=== PATIENT | male | born 1965 | race Caucasian/White ===

== ENCOUNTER 2024-01-13 22:44 | Emergency (ER) | payer MEDICARE, OTHER, SELFPAY ==
[2024-01-13 22:46] VITALS: BP 143/76
[2024-01-13 22:48] VITALS: BP 143/76
[2024-01-13 22:52] VITALS: BMI 22.1
[2024-01-13 23:00] VITALS: BP 107/76
[2024-01-14] VITALS: BP 122/79
--- NOTE | 2024-01-14 00:37 | ED.GENMED ---
History of Present Illness
General
Chief Complaint: Fall
Source: patient
Exam Limitations: none
Time Seen by Provider: 01/13/24 23:36
History of Present Illness
History of Present Illness:
This is a 59 year old male that comes in with c/o falls. Told that he was walking and fell, tried to get up and fell again. Denies any fever, chills, chest pain, SOB, abd pain, nausea, vomiting, diarrhea, headache, dizziness, urinary burning.
Past History
Past History
ED Past Medical History: Seizures, Psychiatric (Schizophrenia, major depressive disorder, Anxiety) and Other (Traumatic brain injury, conversion disorder with seizures)
ED Past Surgical History: Appendectomy, Brain and Cholecystectomy
Social History
Tobacco: Non-smoker
Alcohol: Occasional
Personal: Single
Living: jail
Employment: Disabled
Family History
Family History: Unable to obtain
Review of Systems
Review of Systems
All Other Systems: ROS reviewed and negative except as documented in HPI and ROS
Constitutional: Reports no symptoms; Denies fever or chills
EENT: Reports no symptoms
Respiratory: Reports no symptoms; Denies cough or trouble breathing
Cardiac: Reports no symptoms; Denies chest pain
ABD/GI: Reports no symptoms; Denies abdominal pain, nausea, vomiting or diarrhea
: Reports no symptoms; Denies dysuria, frequency or urgency
Musculoskeletal: Reports no symptoms
Skin: Reports other (Abrasion posterior head)
Neurological: Reports no symptoms; Denies dizzy or headache
Psychiatric: Reports no symptoms
Phy Exam
General Physical Exam
General Presentation: no apparent distress
General age: appears older than age
General Skin: warm and dry
General Habitus: normal
General Mental: usual mental status
General Hydration: appears well hydrated
ENT Exam
ENT Exam: TM's normal, pharynx normal and neck supple
Eye Exam
Eye Exam: EOMI
Cardiovascular Exam
Cardiovascular Exam: regular rate/rhythm, no edema, no murmur and normal peripheral pulses
Pulmonary Exam
Pulmonary Exam: lungs clear, no respiratory distress, no rales, chest non tender, no crackles, no rhonchi, no wheezing and no cough
Gastrointestinal Exam
Gastrointestinal Exam: normal bowel sounds, non tender, soft, no organomegaly, no pulsatile mass and non distended
Musculoskeletal Exam
Musculoskeletal Exam: full ROM, no edema and other (appears to have some foot drop)
Skin Exam
Skin Exam: normal color, warm/dry, no petechia and other (Abrasion to the posterior scalp)
Psychiatric Exam
Psychiatric Exam: normal mood/affect
Course
Orders/Labs/Results
Orders:
Orders
01/13/24 23:08
CT Head W/o Iv Contrast Urgent
Comment:
Reason For Exam: fall/headstrike
Vital Signs
Initial and Last Documented VS:
Initial Vital Signs
Temp Pulse Resp BP Pulse Ox
97.6 F 61 18 143/76 98
01/13/24 22:46 01/13/24 22:46 01/13/24 22:46 01/13/24 22:46 01/13/24 22:46
Last Documented Vital Signs
Temp Pulse Resp BP Pulse Ox
97.6 F 59 17 122/79 100
01/13/24 22:46 01/14/24 00:15 01/14/24 00:15 01/14/24 00:00 01/14/24 00:15
MDM/Problems Addressed
Differential Diagnosis Includes:
accidental fall, Skin abrasion, Ambulatory dysfunction
MDM/Problems Addressed:
This is a 59 year old male that comes in by ambulance with c/o fall. Told by nursing he was trying to walk and fell and then he got up again to walk and fell. Patient did hit the posterior head.
will get CT of the head.
Back into see patient. Patient was able to walk with assistance. [facility].
Chronic conditions affecting care:
TBI
Acute Exacerbation and/or Progression of Chronic Illness:
TBI
*Radiology
Radiology exam reviewed: radiology read reviewed (CT head-Comparison with CT head from 05/31/22. No acute intracranial hemorrhage, herniation or hydrocephalus. Again, seen encephalomalacia in the left interior frontal lobe. Similar appearance of
course calcification extending from the dural margin into the region of encephalomalacia. ) and other (CT cont- Stable ventricular size and similar appearane of supratentorial white matter. )
*Pulse Oximetry
Patient hypoxic: no
*EKG
Interpreted by ED Provider?: NA
Rate: EKG- N/A
*Compound Coating Machine Offbearer Interpretation
Rate: bradycardiac
Heart Rate: 59
Rhythm: sinus
*Critical Care Note
Total Time (30-74mins, 75-104mins- exclusive of procedures): Not Applicable
ED Attending Note
-
Portions of this chart may have been created with voice recognition software.� Occasional wrong word or��sound alike� substitutions may have occurred due to the inherent limitations of voice recognition software.
Discharge Plan
Departure
Patient Disposition: Half-Way/SNF
Date of Disposition: 01/14/24
Time of Disposition: 00:50
Patient with high blood pressure during this ER visit?: No
Condition: Good
Covid-19: Not Applicable
Discharge Problem:
Accidental fall
Instructions: Preventing falls in adults, Skin Abrasions (DC)
Prescriptions:
No Action
methocarbamol [Robaxin] 500 MG tablet
500 mg PO Q8
gabapentin 400 MG capsule
800 mg PO TID
amantadine HCl 100 MG capsule
100 mg PO DAILY
zonisamide 100 MG capsule
200 mg PO DAILY
zonisamide 100 MG capsule
300 mg PO HS
lorazepam 0.5 MG tablet
0.5 mg PO BID
trazodone 100 MG tablet
100 mg PO HS
hyoscyamine sulfate 0.125 MG tablet
0.125 mg PO QID
trihexyphenidyl 5 MG tablet
2 mg PO QID
folic acid 1 MG tablet
1 mg PO DAILY
levetiracetam 750 MG tablet
1,500 mg PO TID
metoprolol tartrate 25 MG tablet
25 mg PO BID
quetiapine [Seroquel] 50 MG tablet
50 mg PO DAILY
lacosamide [Vimpat] 100 MG tablet
200 mg PO BID
Referrals:
Jordan Jay, [Family Provider] - Call in 1-3 days for appt
Activity Restrictions/Additional Instructions:
As discussed, the CT of patient head is negative for any acute process. Please only allow patient to walk with assistance. There is an abrasion to the posterior scalp. Please keep this clean with warm soapy water and apply bacitracin. Follow up
with the family doctor. IF YOU HAVE ANY OTHER CONCERNS PLEASE RETURN TO THE EMERGENCY ROOM
Interventions
Interventions:
*General Assessment Last Done: 01/13/24 22:46
*Neglect/Abuse Screening Last Done: 01/13/24 22:46
ED- Fall Risk Assessment Last Done: 01/13/24 23:02
*ED COVID-19 Vaccine History Last Done: 01/13/24 22:46
ED-Musculoskeletal Assessment Last Done: 01/13/24 23:02
ED- Neurological Assessment Last Done: 01/13/24 23:02
ED-Skin Assessment Last Done: 01/13/24 23:02
Discharge Date and Time
Print Language: OCCITAN
[2024-01-14 01:00] VITALS: BP 112/66
[2024-01-14 02:01] VITALS: BP 131/98
== END 2024-01-14 02:39 ==
LOC: EMR 22:44
PROVIDERS: EMERGENCY PHYSICIAN Emergency Medicine; FAMILY PHYSICIAN Internal Medicine
DX: S00.01XA Abrasion of scalp, initial encounter (principal); W19.XXXA Unspecified fall, initial encounter
CPT/HCPCS: 99284; 70450

== ENCOUNTER 2024-01-15 17:34 | Emergency (ER) | payer MEDICARE, OTHER, SELFPAY ==
[2024-01-15] VITALS (7 sets, daily range): BP systolic 102–124; BP diastolic 74–101; BMI 22.1
[2024-01-15 17:57] LABS: % Basophils 1.2 % (0-2); % Eosinophils 5.6 % (0-6); % Immature Granulocytes 0.3 % (0-0.5); % Lymphocytes 33.6 % (20.5-51.1); % Monocytes 7.6 % (1.7-9.3); % Neutrophils 51.7 % (42.2-75.2); Absolute Eosinophils 0.2 10^3/uL (0-0.7); Absolute Lymphocytes 1.2 10^3/uL (1.2-3.4); Absolute Monocytes 0.3 10^3/uL (0.1-0.6); Absolute Neutrophils 1.8 10^3/uL (1.4-6.5); Hematocrit 40.5 % (39.0-52.0); Hemoglobin 14.6 g/dL (13.0-18.0); Mean Corpuscular Hgb 33.7 pg (27.0-31.0); Mean Corpuscular Volume 93.5 fL (80.0-94.0); Nucleated Red Blood Cells % 0 % (-); Platelet Count 155 10^3/uL (130-400); Red Blood Cell Count 4.33 10^6/uL (4.70-6.10); Red Cell Dist. Width 12.2 % (11.5-14.5); White Blood Cell Count 3.4 10^3/uL (4.8-10.8)
[2024-01-15 18:11] LABS: ALT (SGPT) 14 U/L (0-50); AST (SGOT) 14 U/L (17-59); Albumin 4.3 g/dl (3.5-5.0); Alkaline Phosphatase 61 U/L (38-126); Blood Urea Nitrogen 18 mg/dl (9-20); Calcium 9.5 mg/dl (8.4-10.2); Carbon Dioxide 22 mmol/L (22-30); Chloride 104 mmol/L (98-107); Estimated Creatinine Clearance 79 ml/min; Glucose 94 mg/dl (70-99); Potassium 3.7 mmol/L (3.5-5.1); Sodium 142 mmol/L (135-145); Total Bilirubin 0.6 mg/dl (0.2-1.3); Total Protein 6.9 g/dl (6.3-8.2); eGFR > 60.00
[2024-01-15] MEDS: NSS 1000 IV (18:29)
--- NOTE | 2024-01-15 19:09 | ED.GENMED ---
History of Present Illness
General
Chief Complaint: Seizure
Source: patient and assisted (Spoke with SCOREBOARD OPERATOR at nursing facility who witnessed fall)
Exam Limitations: none
Time Seen by Provider: 01/15/24 17:50
Nursing documentation reviewed up to this point in time: agreed with
History of Present Illness
History of Present Illness:
Patient is a 59-year-old male presenting via EMS from [facility] due to possible seizure activity. Patient with history of TBI, confused at baseline and unable to contribute much to history. Did contact facility and spoke with nurse
who states that patient did sustain an unwitnessed fall and while they were assisting him up he seemed to have some muscular jerking suspicious for seizure activity. He then did hit his head and slide down the wall where he sustained an additional
head strike. They deny witnessing a postictal state. There was no witnessed bowel/bladder incontinence, nausea or vomiting. They do state that he is compliant with his medications.
Per EMS�when they arrived patient was not in a postictal state.
Patient has no current complaints at this time.
Past History
Past History
ED Past Medical History: Seizures, Psychiatric (Schizophrenia, major depressive disorder, Anxiety) and Other (Traumatic brain injury, conversion disorder with seizures)
ED Past Surgical History: Appendectomy, Brain and Cholecystectomy
Social History
Tobacco: Non-smoker
Alcohol: Occasional
Personal: Single
Living: assisted
Employment: Disabled
Family History
Family History: Unable to obtain
Review of Systems
Review of Systems
Allergies reviewed?: Yes
All Other Systems: ROS reviewed and negative except as documented in HPI and ROS
Phy Exam
Physical Exam
Physical Exam:
Vitals: Patient's vital signs are stable. Afebrile
General: Patient is in no apparent distress
Skin: Warm and dry, no rashes or lesions
Head: Normocephalic, atraumatic. No signs of entrapment. No other obvious trauma
Eyes: Sclera nonicteric. Pupils equal round reactive to light bilaterally. EOMs intact. No nystagmus.
Throat: Protecting airway. Trachea midline
Neck: Normal ROM, no cervical spine tenderness, no meningismus. No other obvious trauma
Cardiac: Regular rate and rhythm, no murmurs. No chest wall tenderness. No obvious trauma.
Pulm: Normal respiratory effort, no wheezes, rales, rhonchi heard on exam. No respiratory distress
Abdomen: Abdomen soft and nontender. Pelvis stable.
Back: No midline spinal tenderness.
Extremities: No evidence of cyanosis or edema. Moving all extremities. No obvious trauma.
Neuro: AAOx [address] or time. Following commands. Normal finger-nose. Strength 5 out of 5 in upper and lower extremities. No other focal deficits.
Psychiatric: Normal affect.
Course
Orders/Labs/Results
Orders:
Orders
01/15/24 17:49
CMP [Comprehensive Metabolic Panel] Urgent
Complete Blood Count/With Diff Urgent
01/15/24 18:14
Electrocardiogram (*1) Urgent
Reason for Study: Syncope
CT Head W/o Iv Contrast Urgent
Comment:
Reason For Exam: fall/possible seizure, head strike
EKG- Treatment ONCE
0.9% Sodium Chloride 1000 ml [Nss] 1,000 ml IV BOLUS
Abnormal Lab Results
01/15/24
17:49
WBC 3.4 L 10^3/uL
(4.8-10.8)
RBC 4.33 L 10^6/uL
(4.70-6.10)
MCH 33.7 H pg
(27.0-31.0)
AST 14 L U/L
(17-59)
01/15/24 17:49
01/15/24 17:49
Vital Signs
Initial and Last Documented VS:
Initial Vital Signs
Temp Pulse Resp BP Pulse Ox
98.3 F 68 18 104/74 93
01/15/24 17:37 01/15/24 17:37 01/15/24 17:37 01/15/24 17:37 01/15/24 17:37
Last Documented Vital Signs
Temp Pulse Resp BP Pulse Ox
98.3 F 63 12 114/101 99
01/15/24 17:37 01/15/24 20:45 01/15/24 20:45 01/15/24 20:00 01/15/24 20:45
MDM/Problems Addressed
Differential Diagnosis Includes:
Not limited to: Mechanical fall, syncope, seizure, etc.
MDM/Problems Addressed:
59 year old male presenting with witnessed fall and associated head strike. There was some concern of myoclonic jerking and possible seizure. He does have a history of seizure disorder following TBI. No history of bowel/bladder incontinence.
Patient is compliant with Keppra. Vital stable. Exam as above. Patient is alert and oriented to person which is his baseline. There is no evidence of head or neck trauma. Patient is following commands. No focal neurologic deficits noted. He
does have bilateral equal strength in extremities. Patient denies any current complaints at this time. After speaking with nursing facility�unsure if this was possible seizure activity. Will obtain basic labs, EKG. Given history of head
strike�will check head CT.
EKG obtained. Some nonspecific ST and T wave abnormalities in anterior leads which I suspect to be secondary to lead placement. Do not suspect ischemia. Labs noted. Mild leukopenia. Otherwise no clinically significant abnormalities. Head CT
without acute findings. Did note possible chronic subdural hematoma unchanged on prior study. These findings were discussed with attending physician. Patient has remained stable without any evidence of repeat seizure activity. History less
consistent with seizure although it is a consideration. History more consistent with fall. Feel he is safe for discharge home with close return precautions and outpatient neurology follow-up. Case discussed with attending physician
Chronic conditions affecting care:
TBI, epilepsy
Acute Exacerbation and/or Progression of Chronic Illness:
N/A
*Radiology
Radiology exam reviewed: preliminary read by ED provider and radiology read reviewed
*Pulse Oximetry
Patient hypoxic: no
*EKG
Interpreted by ED Provider?: Yes
EKG Intrepretation Date: 01/15/24
Interpretation: normal
*Information Technology Program Manager Interpretation
Rate: normal
Interpretation: normal
Heart Rate: 68
Rhythm: sinus
*Critical Care Note
Total Time (30-74mins, 75-104mins- exclusive of procedures): Not Applicable
ED Attending Note
-
Portions of this chart may have been created with voice recognition software.� Occasional wrong word or��sound alike� substitutions may have occurred due to the inherent limitations of voice recognition software.
Discharge Plan
Departure
Patient Disposition: Home (Routine Discharge)
Date of Disposition: 01/15/24
Time of Disposition: 20:51
Patient with high blood pressure during this ER visit?: No
Condition: Good
Discharge Problem:
Fall
Instructions: Seizures, Adult (DC), Preventing Falls ED
Prescriptions:
No Action
gabapentin 400 MG capsule
400 mg PO TID
amantadine HCl 100 MG capsule
100 mg PO DAILY
zonisamide 100 MG capsule
200 mg PO DAILY
zonisamide 100 MG capsule
300 mg PO HS
lorazepam 0.5 MG tablet
0.5 mg PO [id number] PRN (Reason: anxiety)
trazodone 100 MG tablet
100 mg PO HS
folic acid 1 MG tablet
1 mg PO DAILY
levetiracetam 750 MG tablet
750 mg PO DAILY
metoprolol tartrate 25 MG tablet
12.5 mg PO DAILY
Rx Instructions:
hold if SBP<110 or HR<60
cetirizine 10 mg Tablet
10 mg PO QPM
bisacodyl 10 mg Suppository
10 mg MD DAILYPRN PRN (Reason: constipation, mom ineffective)
divalproex 125 mg Tablet,Delayed Release (Dr/Ec)
125 mg PO BID
Fleet Enema 19-7 gram/118 mL Enema
118 ml MD DAILYPRN PRN (Reason: constipation, dulcolax ineffective)
sennosides [senna] 8.6 mg Tablet
8.6 mg PO BID
lidocaine 4 % Adhesive Patch,Medicated
1 patch TOPICAL DAILYPRN PRN (Reason: mild pain)
polyethylene glycol 3350 [Miralax] 17 gram Powder In Packet
17 g PO DAILY
levetiracetam 500 mg Tablet
500 mg PO QPM
clonazepam 0.5 mg Tablet
0.5 mg PO BID
cyanocobalamin (vitamin B-12) 1,000 mcg Tablet
1,000 mcg PO DAILY
acetaminophen [Tylenol Extra Strength] 500 mg Tablet
1,000 mg PO Q8HPRN MDD 3000 mg PRN (Reason: mild pain/temp>100.4)
magnesium hydroxide [Milk of Magnesia] 400 mg/5 mL Suspension
30 ml PO [id number] PRN (Reason: no bm 3 days)
emollient Lotion
1 ea TOPICAL DAILY
emollient Lotion
1 ea TOPICAL DAILYPRN PRN (Reason: dry skin)
tamsulosin 0.4 mg Capsule
0.4 mg PO DAILY
fluoxetine 10 mg Capsule
10 mg PO QPM
ibuprofen 600 mg Tablet
600 mg PO BID
trihexyphenidyl 2 mg Tablet
2 mg PO QID
fluticasone propionate [Flonase] 50 mcg/actuation [place],Suspension
1 spray INTRANASAL BID
simethicone 80 mg Tablet,Chewable
80 mg PO DAILY
Saline Nasal 0.65 % Aerosol,[place]
1 spray INTRANASAL TID
pregabalin 75 mg Capsule
75 mg PO BID
cholecalciferol (vitamin D3) [Vitamin D3] 25 mcg (1,000 unit) Tablet
25 mcg PO DAILY
lacosamide 200 mg Tablet
200 mg PO BID
rimegepant 75 mg Tablet,Disintegrating
75 mg PO Q8HPRN PRN (Reason: migraine)
nicotine patch
1 patch topical DAILYPRN PRN (Reason: smoking cessation)
Referrals:
Jordan Jay, [Family Provider] -
Activity Restrictions/Additional Instructions:
RETURN TO THE EMERGENCY DEPARTMENT WITH ANY SEVERE HEADACHE/NECK PAIN, SEIZURES, CHANGES IN MENTAL STATUS, VOMITING, WORSENING IN CURRENT SYMPTOMS, OR ANY OTHER CONCERNS
-As discussed�it is important you follow-up with your neurologist outpatient for further evaluation/management
-Stay well-hydrated.
Monitor symptoms closely return to the emergency department any acute worsening/new symptoms
Interventions
Interventions:
*Risk Screen - Suicide Last Done: 01/15/24 17:44
*General Assessment Last Done: 01/15/24 17:44
*Neglect/Abuse Screening Last Done: 01/15/24 17:44
*ED COVID-19 Vaccine History Last Done: 01/15/24 17:44
ED- Cardiac Assessment Last Done: 01/15/24 17:45
ED- Neurological Assessment Last Done: 01/15/24 17:45
ED- Pulmonary Assessment Last Done: 01/15/24 17:45
Discharge Date and Time
Print Language: DUTCH
[2024-01-16] VITALS: BP 124/85
[2024-01-16 01:00] VITALS: BP 109/80
== END 2024-01-16 02:52 | disposition home or self-care (01) ==
LOC: EMR 17:34
PROVIDERS: EMERGENCY PHYSICIAN Student in an Organized Health Care Education/Training Program; FAMILY PHYSICIAN Internal Medicine
DX: S09.90XA Unspecified injury of head, initial encounter (principal); W19.XXXA Unspecified fall, initial encounter; G40.909 Epilepsy, unspecified, not intractable, without status epilepticus; F20.9 Schizophrenia, unspecified; F32.9 Major depressive disorder, single episode, unspecified; F41.9 Anxiety disorder, unspecified; Z87.820 Personal history of traumatic brain injury; Z90.49 Acquired absence of other specified parts of digestive tract
CPT/HCPCS: 99284; 96360; 70450; 80053; 85025; 93005

== ENCOUNTER 2024-02-13 13:25 | Emergency (ER) | payer MEDICARE, OTHER, SELFPAY ==
[2024-02-13 13:29] VITALS: BMI 20.8
[2024-02-13 13:30] VITALS: BP 104/84
--- NOTE | 2024-02-13 13:59 | ED.GENMED ---
History of Present Illness
<Wilmer Dudley PA-C - Last Filed: 02/14/24 18:04>
General
Chief Complaint: Abnormal Lab Value
Source: patient, ambulance crew, half-way and half-way records
Time Seen by Provider: 02/13/24 13:48
History of Present Illness
History of Present Illness:
59-year-old male with past medical history of seizure disorder, traumatic brain injury, schizophrenia presenting to the emergency department for evaluation of reportedly low potassium which was done at his nursing facility but unclear as to when the
labs had been done. Patient's history is very limited secondary to his chronic medical conditions. EMS was also noting to triage staff that [facility] noted possible seizure-like activity this morning. And a call placed to [facility] I spoke to
the patient's nurse today who confirms the story but states that she was not the nurse who witnessed the seizure-like activity and was unable to expand any further on today's events however the staff was concerned for increasing seizure-like
activity at nighttime. Patient's nurse today states that patient is often awake during these events but sometimes has abnormal movements of his left arm. They also noted patient had been complaining of abdominal pain over the last day or so but
patient did not mention this to us here.
Past History
<Wilmer Dudley PA-C - Last Filed: 02/14/24 18:04>
Past History
ED Past Medical History: Seizures, Psychiatric (Schizophrenia, major depressive disorder, Anxiety) and Other (Traumatic brain injury, conversion disorder with seizures)
ED Past Surgical History: Appendectomy, Brain and Cholecystectomy
Social History
Tobacco: Non-smoker
Alcohol: Occasional
Drug: None
Personal: Single
Living: half-way
Employment: Disabled
Family History
Family History: Unable to obtain
Review of Systems
<Wilmer Dudley PA-C - Last Filed: 02/14/24 18:04>
Review of Systems
All Other Systems: ROS reviewed and negative except as documented in HPI and ROS
Phy Exam
<Wilmer Dudley PA-C - Last Filed: 02/14/24 18:04>
Physical Exam
Physical Exam:
GENERAL: Alert , in no apparent distress, appears older than stated age
HEAD: NCAT
EYE: clear conjunctiva
NECK: Supple
ENT: o/p clr, mmm.
CARDIAC: Regular rate and rhythm .
LUNGS: Clear breath sounds bilaterally, no acute respiratory distress, no wheezes/rales/rhonchi
ABDOMEN: Soft, without focal tenderness, no r/g, no cvat
NEUROLOGICAL: Alert and oriented to self and place but not year, SANCHEZ x 4
SKIN: Warm and dry, superficial abrasion to right lateral nasal bridge
MUSCULOSKELETAL: No edema, well perfused.
PSYCH: Normal and appropriate interaction.
Scores
<Wilmer Dudely PA-C - Last Filed: 02/14/24 18:04>
Heart Failure Risk
Heart Failure Risk Score: Not Applicable
Heart Score for Chest Pain Patients
STEMI patient?: Not applicable
Withdrawal Assessment of Alcohol
Withdrawal Assessment Completed?: Not applicable
Course
<Wilmer Dudley PA-C - Last Filed: 02/14/24 18:04>
Orders/Labs/Results
Orders:
Orders
02/13/24 13:53
Electrocardiogram (*1) Urgent
Reason for Study: Other
Other Reason for Exam: hypokalemia
EKG- Treatment ONCE
02/13/24 13:59
CT Head W/o Iv Contrast Urgent
Comment:
Reason For Exam: ? recurring seizures per half-way
02/13/24 14:32
Complete Blood Count/With Diff Urgent
Depakane Urgent
02/13/24 15:48
Comprehensive Metabolic Panel Urgent
Keppra (Levetiracetam) [S] Urgent
Magnesium Urgent
02/13/24 16:21
Valproate Sodium [Depacon] 500 mg 0.9% Sodium Chloride 50 ml [Nss] 50 ml IV NOW
02/13/24 18:10
CR Obstruct Series W/pa Chest Urgent
Comment:
Reason For Exam: abdominal pain
Abnormal Lab Results
02/13/24 02/13/24
14:32 15:48
MCV 97.2 H fL
(80.0-94.0)
MCH 33.3 H pg
(27.0-31.0)
MPV 10.5 H fL
(7.4-10.4)
Chloride 108 H mmol/L
(98-107)
Carbon Dioxide 19 L mmol/L
(22-30)
BUN 33 H mg/dl
(9-20)
Glucose 115 H mg/dl
(70-99)
Valproic Acid 25.9 L ug/ml
(50.0-120.0)
02/13/24 14:32
02/13/24 15:48
Vital Signs
Initial and Last Documented VS:
Initial Vital Signs
Pulse Resp
82 15
02/13/24 13:29 02/13/24 13:29
Last Documented Vital Signs
Temp Pulse Resp BP Pulse Ox
97.6 F 77 14 126/79 93
02/13/24 13:30 02/13/24 18:00 02/13/24 18:00 02/13/24 18:34 02/13/24 17:00
<Jagjit Pérez MD - Last Filed: 02/13/24 16:15>
Orders/Labs/Results
Orders:
Orders
02/13/24 13:53
Electrocardiogram (*1) Urgent
Reason for Study: Other
Other Reason for Exam: hypokalemia
EKG- Treatment ONCE
02/13/24 13:59
CT Head W/o Iv Contrast Urgent
Comment:
Reason For Exam: ? recurring seizures per half-way
02/13/24 14:32
Complete Blood Count/With Diff Urgent
Depakane Urgent
02/13/24 15:48
Comprehensive Metabolic Panel Urgent
Keppra (Levetiracetam) [S] Urgent
Magnesium Urgent
02/13/24 16:21
Valproate Sodium [Depacon] 500 mg 0.9% Sodium Chloride 50 ml [Nss] 50 ml IV NOW
02/13/24 18:10
CR Obstruct Series W/pa Chest Urgent
Comment:
Reason For Exam: abdominal pain
Abnormal Lab Results
02/13/24 02/13/24
14:32 15:48
MCV 97.2 H fL
(80.0-94.0)
MCH 33.3 H pg
(27.0-31.0)
MPV 10.5 H fL
(7.4-10.4)
Chloride 108 H mmol/L
(98-107)
Carbon Dioxide 19 L mmol/L
(22-30)
BUN 33 H mg/dl
(9-20)
Glucose 115 H mg/dl
(70-99)
Valproic Acid 25.9 L ug/ml
(50.0-120.0)
02/13/24 14:32
02/13/24 15:48
Vital Signs
Initial and Last Documented VS:
Initial Vital Signs
Pulse Resp
82 15
02/13/24 13:29 02/13/24 13:29
Last Documented Vital Signs
Temp Pulse Resp BP Pulse Ox
97.6 F 77 14 126/79 93
02/13/24 13:30 02/13/24 18:00 02/13/24 18:00 02/13/24 18:34 02/13/24 17:00
<Wilmer Dudley PA-C - Last Filed: 02/14/24 18:04>
MDM/Problems Addressed
Differential Diagnosis Includes:
Hypokalemia, hypomagnesemia, hyponatremia, breakthrough seizure, medication noncompliance
MDM/Problems Addressed:
59-year-old male presenting to the emergency department for evaluation from [facility], initially for low potassium however EMS did state that [facility] reported patient may have had a seizure this morning. No postictal phase and unable to speak
with staff who reportedly witnessed the event. They also mention patient had been complaining of some abdominal pain however he did not make mention of this here and his abdomen exam is reassuring. Will check labs including his Keppra and Depakote
level. Patient is otherwise hemodynamically stable and in no acute distress. Disposition pending. Due to the reported continuous breakthrough seizures we will obtain a CT scan of the head however nurse that I had spoken with was overall unsure if
what was being noticed was truly seizure activity or not.
Chronic conditions affecting care: Neurological disorder and Psychiatric illness
Acute Exacerbation and/or Progression of Chronic Illness: Neurological disorder
<Wilmer Dudley PA-C - Last Filed: 02/14/24 18:04>
*Pulse Oximetry
Patient hypoxic: no
*Critical Care Note
Total Time (30-74mins, 75-104mins- exclusive of procedures): Not Applicable
Data Reviewed
Review of Other/Old Records Reveals: Labs and Records
<Wilmer Dudley PA-C - Last Filed: 02/14/24 18:04>
Patient Management
Discussion with other providers: [facility] staff
ED Attending Note
<Wilmer Dudley PA-C - Last Filed: 02/14/24 18:04>
-
Portions of this chart may have been created with voice recognition software.� Occasional wrong word or��sound alike� substitutions may have occurred due to the inherent limitations of voice recognition software.
<Jagjit Pérez MD - Last Filed: 02/13/24 16:15>
ED Attending Note
Patient seen and examined by attending physician: Yes
ED Attending Note:
Patient with history of TBI and seizure disorder, presents to ED from half-way after blood work revealed abnormal potassium level. In addition, patient also has been experiencing multiple seizure episodes. Patient has no complaints upon
arrival.
Physical Exam
General: no apparent distress, not acutely ill. afebrile
Head: nc/at. eomi
Neck: supple. no meningeal signs.
Heart: s1/s2 regular rate and rhythm, no murmur. equal radial pulses.
Lungs: no acute respiratory distress. clear bilaterally
Abdomen: normal bowel sounds. not tender.
Neuro: alert and awake. no focal neurological deficits
Skin: no rash
Psychiatric: agitated
Extremities: no edema. no calf tenderness.
Blood work reviewed, without any acute abnormal findings. Valproic acid noted to be subtherapeutic. Patient given 500 mg IV infusion in ED. afterwards, patient will be discharged back to half-way for continual care, with recommendation to
potentially adjust patient's medications via his providing physician.
Discharge Plan
Departure
Patient Disposition: [facility]
Date of Disposition: 02/13/24
Time of Disposition: 16:14
Patient with high blood pressure during this ER visit?: No
Discharge Problem:
Seizure secondary to subtherapeutic anticonvulsant medication
Instructions: Seizures, Adult ED
Prescriptions:
No Action
gabapentin 400 MG capsule
400 mg PO TID
amantadine HCl 100 MG capsule
100 mg PO DAILY
zonisamide 100 MG capsule
300 mg PO BID
trazodone 100 MG tablet
100 mg PO HS
levetiracetam 750 MG tablet
750 mg PO DAILY
metoprolol tartrate 25 MG tablet
12.5 mg PO DAILY
Rx Instructions:
hold if SBP<110 or HR<60
cetirizine 10 mg Tablet
10 mg PO QPM
bisacodyl 10 mg Suppository
10 mg WA DAILYPRN PRN (Reason: if no bm aftr mom )
divalproex 125 mg Tablet,Delayed Release (Dr/Ec)
125 mg PO BID
Fleet Enema 19-7 gram/118 mL Enema
118 ml WA DAILYPRN PRN (Reason: constipation, dulcolax ineffective)
sennosides [senna] 8.6 mg Tablet
8.6 mg PO BID
lidocaine 4 % Adhesive Patch,Medicated
1 patch TOPICAL DAILYPRN PRN (Reason: mild pain)
clonazepam 0.5 mg Tablet
0.5 mg PO BID
acetaminophen [Tylenol Extra Strength] 500 mg Tablet
1,000 mg PO Q8HPRN PRN (Reason: moderate pains)
magnesium hydroxide [Milk of Magnesia] 400 mg/5 mL Suspension
30 ml PO [id number] PRN (Reason: no bm by day)
emollient Lotion
1 ea TOPICAL DAILY
emollient Lotion
1 ea TOPICAL DAILYPRN PRN (Reason: dry skin)
tamsulosin 0.4 mg Capsule
0.4 mg PO DAILY
fluoxetine 10 mg Capsule
10 mg PO QPM
trihexyphenidyl 2 mg Tablet
2 mg PO QID
lacosamide 200 mg Tablet
200 mg PO BID
rimegepant 75 mg Tablet,Disintegrating
75 mg PO Q8HPRN PRN (Reason: migraine)
nicotine patch
1 patch topical DAILYPRN PRN (Reason: smoking cessation)
pregabalin [Lyrica] 50 mg Capsule
50 mg PO BID
potassium chloride 20 mEq Tablet Extended Release
20 meq PO DAILY
Lorazepam 1mg/1ml Gel
1 applic topical DAILYPRN PRN (Reason: seizure)
Rx Instructions:
apply 1mg at start of seirzure, may apply another 1mg q 5minutes if still seizing, max 5mg
acetaminophen [Tylenol] 325 mg Tablet
650 mg PO Q8HPRN PRN (Reason: mild pain)
Referrals:
Jordan Jay, DO [Family Provider] -
Activity Restrictions/Additional Instructions:
As discussed, you are being discharged back to half-way for continual evaluation and treatment. Please speak with your physician at half-way regarding your medications, as valproic acid was noted to be low.
Interventions
Interventions:
*Risk Screen - Suicide Last Done: 02/13/24 13:30
*General Assessment Last Done: 02/13/24 13:30
*Neglect/Abuse Screening Last Done: 02/13/24 13:30
ED- Fall Risk Assessment Last Done: 02/13/24 13:45
*ED COVID-19 Vaccine History Last Done: 02/13/24 13:30
*Nursing Disposition Last Done: 02/13/24 18:34
Discharge Date and Time
Discharge Date/Time: 02/13/24 18:36
Print Language: ICELANDIC
[2024-02-13 14:00] VITALS: BP 114/87
[2024-02-13 14:41] LABS: % Basophils 1.1 % (0-2); % Eosinophils 2.4 % (0-6); % Immature Granulocytes 0.5 % (0-0.5); % Lymphocytes 26.1 % (20.5-51.1); % Monocytes 6.3 % (1.7-9.3); % Neutrophils 63.6 % (42.2-75.2); Absolute Basophils 0.1 10^3/uL (0-0.2); Absolute Eosinophils 0.2 10^3/uL (0-0.7); Absolute Lymphocytes 1.7 10^3/uL (1.2-3.4); Absolute Monocytes 0.4 10^3/uL (0.1-0.6); Absolute Neutrophils 4.2 10^3/uL (1.4-6.5); Hematocrit 45.8 % (39.0-52.0); Hemoglobin 15.7 g/dL (13.0-18.0); Mean Corp Hgb Conc. 34.3 g/dL (33.0-37.0); Mean Corpuscular Hgb 33.3 pg (27.0-31.0); Mean Corpuscular Volume 97.2 fL (80.0-94.0); Mean Platelet Volume 10.5 fL (7.4-10.4); Nucleated Red Blood Cells % 0 % (-); Platelet Count 222 10^3/uL (130-400); Red Blood Cell Count 4.71 10^6/uL (4.70-6.10); Red Cell Dist. Width 12.9 % (11.5-14.5); White Blood Cell Count 6.7 10^3/uL (4.8-10.8)
[2024-02-13 15:06] LABS: Depakane 25.9 ug/ml (50.0-120.0)
[2024-02-13 16:07] LABS: ALT (SGPT) 33 U/L (0-50); AST (SGOT) 18 U/L (17-59); Albumin 4.1 g/dl (3.5-5.0); Alkaline Phosphatase 79 U/L (38-126); Blood Urea Nitrogen 33 mg/dl (9-20); Calcium 9.5 mg/dl (8.4-10.2); Carbon Dioxide 19 mmol/L (22-30); Chloride 108 mmol/L (98-107); Glucose 115 mg/dl (70-99); Magnesium 1.6 mg/dl (1.6-2.3); Potassium 3.7 mmol/L (3.5-5.1); Sodium 143 mmol/L (135-145); Total Bilirubin 0.5 mg/dl (0.2-1.3); eGFR > 60.00
[2024-02-13] MEDS: DEPACON 55 MG IV (16:42)
[2024-02-13 18:34] VITALS: BP 126/79
== END 2024-02-13 18:36 ==
LOC: EMR 13:25
PROVIDERS: Physician Assistant Medical; EMERGENCY PHYSICIAN Emergency Medicine; FAMILY PHYSICIAN Internal Medicine
DX: G40.909 Epilepsy, unspecified, not intractable, without status epilepticus (principal); Z87.820 Personal history of traumatic brain injury; Z90.49 Acquired absence of other specified parts of digestive tract
CPT/HCPCS: 96365; 99285; 70450; 74022; 80053; 80164; 80177; 83735; 85025; 93005

== ENCOUNTER 2024-07-14 14:58 | Emergency (ER) | payer MEDICARE, OTHER, SELFPAY ==
[2024-07-14 15:31] VITALS: BP 103/88
[2024-07-14] MEDS: SAPHRIS 5 MG SL ×2 (15:45→16:25)
[2024-07-14 15:46] VITALS: BMI 25.7
[2024-07-14 15:56] LABS: Hematocrit 36.4 % (39.0-52.0); Hemoglobin 12.1 g/dL (13.0-18.0); Mean Corp Hgb Conc. 33.2 g/dL (33.0-37.0); Mean Corpuscular Hgb 33.4 pg (27.0-31.0); Mean Corpuscular Volume 100.6 fL (80.0-94.0); Mean Platelet Volume 9.4 fL (7.4-10.4); Platelet Count 209 10^3/uL (130-400); Red Blood Cell Count 3.62 10^6/uL (4.70-6.10); Red Cell Dist. Width 13.8 % (11.5-14.5); White Blood Cell Count 5.2 10^3/uL (4.8-10.8)
[2024-07-14 16:08] LABS: ALT (SGPT) 19 U/L (0-50); AST (SGOT) 19 U/L (17-59); Acetaminophen < 10 ug/ml (10-30); Albumin 3.7 g/dl (3.5-5.0); Alkaline Phosphatase 77 U/L (38-126); Blood Urea Nitrogen 19 mg/dl (9-20); Calcium 9.3 mg/dl (8.4-10.2); Carbon Dioxide 24 mmol/L (22-30); Chloride 108 mmol/L (98-107); Estimated Creatinine Clearance 92 ml/min; Glucose 69 mg/dl (70-99); Salicylate < 1.0 mg/dl (2.0-20.0); Sodium 142 mmol/L (135-145); Total Bilirubin 0.4 mg/dl (0.2-1.3); Total Protein 6.3 g/dl (6.3-8.2); eGFR > 60.00
[2024-07-14 16:09] LABS: Alcohol None Detected
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
[2024-07-15 01:12] VITALS: BP 97/67
[2024-07-15 01:28] LABS: Urine Albumin 2+ (Neg - Trace); Urine Bilirubin Negative (Negative); Urine Character Slightly Cloudy (Clear); Urine Color Yellow; Urine Glucose Negative (Negative); Urine Ketone Negative (Negative); Urine Leukocyte 1+ (Negative); Urine Nitrite Negative (Negative); Urine Occult Blood 4+ (Negative); Urine Specific Gravity 1.015 (<1.030); Urine Urobilinogen 1+ (Neg - 1+)
[2024-07-15 01:47] LABS: Amphetamines Negative (Negative); Barbiturates Negative (Negative); Benzodiazepines Positive (Negative); Buprenorphine Negative (Negative); Cocaine Negative (Negative)
[2024-07-15 01:48] LABS: Marijuana Negative (Negative); Methadone Negative (Negative); Methamphetamines Negative (Negative); Opiates Positive (Negative); Phencyclidine Negative (Negative); Tricyclic Antidepressants Negative (Negative)
[2024-07-15 01:58] LABS: Fentanyl, Urine Negative (Negative)
[2024-07-15 01:59] LABS: Urine Mucus Few
[2024-07-15 02:00] LABS: Urine Bacteria Few (Negative); Urine Calcium Oxalate Crystals Seen; Urine Red Blood Cell >100 /HPF (0-2)
--- NOTE | 2024-07-15 12:44 | ED.CRISIS ---
ED Crisis Note
ED Crisis Note
Subjective:
No new issues
Assessment/Plan:
I spoke to crisis who tells me they are still waiting to hear back from [facility] for placement.
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
--- NOTE | 2024-07-15 15:59 | ED.CRISIS ---
Addendum entered and electronically signed by Delonte Sherman MD 07/15/24 19:46:
Discussed with hospitalist for consult while pending placement.
Original Note:
ED Crisis Note
ED Crisis Note
Subjective:
59-year-old male here for aggressive behavior. Has not had his home meds ordered yet.
Objective:
Awake and alert not in distress.
Assessment/Plan:
59-year-old male here waiting for psychiatric placement. Ordered all of his home medications and will continue these while pending placement.
[2024-07-15] MEDS: PROZAC PO (16:24)
[2024-07-15] MEDS: VIMPAT 200 MG PO (20:55)
[2024-07-15] MEDS: KEPPRA 750 MG PO (20:56)
[2024-07-15] MEDS: ATIVAN 0.5 MG PO (20:56)
[2024-07-15] MEDS: ARTANE 2 MG PO (20:57)
[2024-07-15] MEDS: ZONEGRAN 300 MG PO (20:57)
[2024-07-15] MEDS: LOPRESSOR 12.5 MG PO (20:58)
[2024-07-16] MEDS: ZYPREXA 10 MG IM (02:25)
[2024-07-16 02:38] VITALS: BP 122/80
--- NOTE | 2024-07-16 06:50 | CON.HOSP ---
Consultation
-
Date/Time Consultation Requested: 07/15/24 7:45 PM
Date/Time Consultation Performed: 07/16/24 6:30 AM
Requesting Provider: Dr. Sherman
Performing Provider: Dr. Best
Reason for Consultation: Medical Management
Family Physician
-
Family Physician: Jordan Jay, DO
Chief Complaint
-
Agitation / Combative
History of Present Illness
Patient is a 59y M with PMH significant for prior traumatic brain injury, schizophrenia and psychosis who presented to ED on 07/14 via EMS after 911 was called for aggressive and combative behavior at his nursing facility ([facility]). Patient
was evaluated in the ED by ED staff, Crisis staff and Psychiatry. 302 has been initiated and awaiting placement at inpatient psychiatric facility.
Patient is intermittently agitated here in the ED. Has repeatedly attempted to elope. Patient exhibits holiness pre-occupation and rambling speech / flight of ideas.
Medical service consulted for evaluation of patient's medical issues.
Medical History
Past Medical History
Additional Past Medical History:
TBI
Schizophrenia
Conversion Disorder / Seizure Activity
Hypertension
Peripheral Neuropathy
Additional Past Surgical History:
Left Temporal Craniotomy
Social History
Unable to obtain full social history at this time due to: Patient Non-verbal
Family History
Family History: Unable to Obtain
Allergies / Home Medications
Allergies reflects when Allergies were last updated in [facility].
Home Medications with original date entered in [facility]
Allergy/Medication List:
Allergies
Allergy/AdvReac Type Severity Reaction Status Date / Time
bee venom protein (honey bee) Allergy Unknown Verified 07/14/24 15:39
phenobarbital Allergy Change Verified 07/15/24 16:10
Mental
Status
phenytoin [From Dilantin] Allergy Swelling Verified 07/15/24 16:10
Home Medications
levetiracetam 750 mg tablet 750 mg PO BID 06/26/20
metoprolol tartrate 25 mg tablet 12.5 mg PO DAILY 06/26/20
trazodone 100 mg tablet 100 mg PO HS 06/26/20
zonisamide 100 mg capsule 300 mg PO BID 06/26/20
acetaminophen 500 mg tablet (Tylenol Extra Strength) 1,000 mg PO Q8HPRN PRN moderate pains 01/15/24
bisacodyl 10 mg rectal suppository 10 mg ID DAILYPRN PRN if no bm aftr mom 01/15/24
emollient 1 ea topical DAILY bilateral feet 01/15/24
emollient 1 ea topical DAILYPRN PRN dry skin 01/15/24
fluoxetine 10 mg capsule 10 mg PO QPM 01/15/24
lacosamide 200 mg tablet 200 mg PO BID 01/15/24
magnesium hydroxide 400 mg/5 mL oral suspension (Milk of Magnesia) 30 ml PO [id number] PRN no bm by 3rd day 01/15/24
sennosides 8.6 mg tablet (senna) 8.6 mg PO BID 01/15/24
sodium phosphates 19 gram-7 gram/118 mL enema (Fleet Enema) 118 ml ID DAILYPRN PRN if no bm aftr duloclax 01/15/24
trihexyphenidyl 2 mg tablet 2 mg PO QID 01/15/24
Lorazepam 1mg/1ml Gel 1 applic topical DAILYPRN PRN seizure 02/13/24
acetaminophen 325 mg tablet (Tylenol) 650 mg PO Q8HPRN PRN mild pain 02/13/24
acetaminophen 650 mg rectal suppository 650 mg ID Q6HPRN PRN fever 07/15/24
hyoscyamine sulfate 0.125 mg tablet 0.125 mg PO Q4HPRN PRN secretions 07/15/24
lorazepam 0.5 mg tablet 0.5 mg PO BID 07/15/24
lorazepam 1 mg tablet 1 mg PO Q8HPRN PRN anixety 07/15/24
morphine concentrate 20 mg/mL oral syringe (FOR ORAL USE ONLY) 5 mg sublingual Q3HPRN PRN sob/severe pain 07/15/24
polyethylene glycol 3350 17 gram oral powder packet (Miralax) 17 g PO DAILYPRN PRN constipation 07/15/24
prochlorperazine maleate 10 mg tablet (Compazine) 10 mg PO Q6HPRN PRN nausea 07/15/24
Review of Systems
-
Unable to obtain full review of systems at this time due to: Patient Non-verbal
Physical Exam
Vital Signs
Vital Signs
Temp Pulse Resp BP Pulse Ox
97.8 F 75 17 122/80 96
07/14/24 15:33 07/16/24 02:38 07/16/24 02:38 07/16/24 02:38 07/16/24 02:38
Physical Exam
General: Other (59y M lying in R lateral recumbent position. Does not answer questions or follow commands. Opens eyes to speech but poor eye contact.)
Respiratory: Clear; Negative Wheezes, Rales or Rhonchi
Cardiac: S1/S2 and Regular Rhythm
GI: Soft, Non Tender, Non Distended and Normal Bowel Sounds
Musculoskeletal: No Clubbing, No Cyanosis and No Edema
Neuro: Other (Sleeping / resting comfortably at present. Not currently agitated. Does not answer questions / follows commands but eyes open and withdraws from pain, etc.)
Laboratory Results
-
Laboratory Results
07/14/24 15:43
07/14/24 15:43
Total Bilirubin 0.4 mg/dl (0.2-1.3) 07/14/24 15:43
AST 19 U/L (17-59) 07/14/24 15:43
ALT 19 U/L (0-50) 07/14/24 15:43
Alkaline Phosphatase 77 U/L (38-126) 07/14/24 15:43
Impression / Plan
-
A/R: Patient is a 59y M with PMH significant for TBI, schizophrenia and conversion disorder / seizure activity who presented to ED for agitation and has had 302 executed.
Acute Psychosis
Schizophrenia
- 302 initiated / seen by Psychiatry.
- Continue current psychotropic meds with PRN Zyprexa PO or IM as recommended by Psych.
- Await IP Psych placement for continued treatment.
History of TBI
Seizure Activity
- On multiple medications / AEDS - ? some more for mood stabilization.
- Continue current med regimen with no changes.
- Seizure precautions.
- Follow for any evident seizure activity or other new issues.
Benign Hypertension
- Stable. Continue metoprolol.
Thank you very much for this consultation. Would continue patient's usual medication regimen as you are doing with acute / PRN medications.
Monitor for any new issues or complaints.
Medicine service will sign off at this time. Please call / reconsult if any new issues.
[2024-07-16] MEDS: ATIVAN 0.5 MG PO (09:30)
[2024-07-16] MEDS: KEPPRA 750 MG PO (09:30)
[2024-07-16] MEDS: LOPRESSOR 12.5 MG PO (09:30)
[2024-07-16] MEDS: VIMPAT 200 MG PO (09:30)
[2024-07-16] MEDS: ARTANE 2 MG PO ×2 (09:30→13:23)
[2024-07-16] MEDS: PROZAC 10 MG PO (09:30)
[2024-07-16] MEDS: ZONEGRAN 300 MG PO (09:31)
[2024-07-16 09:39] VITALS: BP 117/76
[2024-07-16 09:39] LABS: Glucose - Point of Care 83 mg/dl (70-99)
--- NOTE | 2024-07-16 15:54 | W.PN.UPDATE ---
Update Note
Progress Note Update
patient seen chart reviewed. patient is a 59 year old man who was brought to on a 302 commitment. he resides at [facility] and had become aggressive posing a risk to self and others. he has hx tbi and schizophrenia and is clearly cognitively
impaired. notes indicate patient delusional and hallucinating. he would not talk to me once i told him he was not going home and we were searching for a psychiatric in patient bed. he told me rather angrily, 'i that case just leave'. he has hx of
sz disorder and is on lacosamide zonegran and keppra. psychiatricallyi patient was taking zyprexa 5 mg q hs trazodone 100 mg q hs and lorazepam. noted artane 2 qid unclear if this is psych or neuro. i called [facility] and asked to speak to his
nurse but no one picked up the phone when they rang the floor where he resides. for now would continue as patient not in the frame of mind to rationally discuss why he is on a med and whether to continue it and one more day will not be a risk to
him. it does have anticholinergic side effects as does zyprexa. would dc prozac. sometimes antidepressants can fuel agitation.
[2024-07-16] MEDS: ATIVAN PO (19:39)
[2024-07-16] MEDS: ARTANE PO ×2 (19:39→22:51)
[2024-07-16] MEDS: LOPRESSOR PO (19:39)
[2024-07-16] MEDS: KEPPRA PO (19:39)
[2024-07-16] MEDS: ZONEGRAN PO (19:40)
[2024-07-16] MEDS: VIMPAT PO (19:40)
--- NOTE | 2024-07-17 03:30 | DOWNTIME ---
There was a [employer] Downtime on 07/17/2024 from 0200 to 07/18/2023 at 0318 . Downtime documentation of patient's care, including medication administrations, has been reconciled in the electronic record per guidelines. Refer to the
patient's paper chart under the miscellaneous tab to see printed paper medication records and downtime forms.
[2024-07-17] MEDS: ZONEGRAN 300 MG PO (08:44)
[2024-07-17] MEDS: ARTANE 2 MG PO (08:44)
[2024-07-17] MEDS: ATIVAN 0.5 MG PO (08:44)
[2024-07-17] MEDS: KEPPRA 750 MG PO (08:44)
[2024-07-17] MEDS: LOPRESSOR 12.5 MG PO (08:44)
[2024-07-17] MEDS: VIMPAT 200 MG PO (08:44)
[2024-07-17 08:56] VITALS: BP 127/81
--- NOTE | 2024-07-17 14:26 | ED.CRISIS ---
ED Crisis Note
ED Crisis Note
Subjective:
59-year-old male with psychosis, schizophrenia awaiting placement. I evaluated patient when he walked out and sat on the floor. I assisted him to the bed
Objective:
No acute distress, laying on floor. No signs of trauma.
Assessment/Plan:
59-year-old male with schizophrenia, cleared by psychiatry for discharge to [facility]. Olanzapine prescribed.
[2024-07-17] MEDS: ARTANE PO ×3 (15:53→22:20)
[2024-07-17] MEDS: ATIVAN PO (20:18)
[2024-07-17] MEDS: KEPPRA PO (20:18)
[2024-07-17] MEDS: VIMPAT PO (20:18)
[2024-07-17] MEDS: LOPRESSOR PO (20:18)
[2024-07-17] MEDS: ZONEGRAN PO (20:19)
[2024-07-17 22:07] VITALS: BP 124/83
[2024-07-18] MEDS: ARTANE PO ×3 (08:14→21:01)
[2024-07-18] MEDS: KEPPRA PO (08:14)
[2024-07-18] MEDS: ZONEGRAN PO ×2 (08:14→21:01)
[2024-07-18] MEDS: VIMPAT PO (08:14)
[2024-07-18] MEDS: LOPRESSOR PO ×2 (08:14→21:01)
[2024-07-18] MEDS: ATIVAN PO (08:14)
[2024-07-18 11:30] VITALS: BP 123/86
--- NOTE | 2024-07-18 13:12 | ED.CRISIS ---
ED Crisis Note
ED Crisis Note
Subjective:
303 was upheld. Patient has remained stable. PERC crisis is excepted at [facility] however they request a COVID, chest x-ray, head CT, urine.
Objective:
No distress currently eating nontoxic warm and dry rambling speech.
Assessment/Plan:
Has remained medically stable and nontoxic. Testing ordered per request. CT head urine was already done with a mixed culture chest x-ray and COVID.
--- NOTE | 2024-07-18 14:00 | W.PN.UPDATE ---
Update Note
Progress Note Update
patient seen chart reviewed. patient remains incapable of having a discussion. delusional paranoid screams at you when you try to converse with him. hearing held. he did not really speak to his real estate attorney. his real estate attorney waived his presence at the
hearing. patient was committed to up to 20 days in pt psych. attempting to negotiated requirements of [place] for admit. needs covid test cxr. ordered 2mg ativan 30 min prior to departure.
[2024-07-18 14:57] LABS: COVID-19 Antigen Negative (Negative)
[2024-07-18 15:11] VITALS: BMI 25.7
[2024-07-18] MEDS: VIMPAT 200 MG PO (20:52)
[2024-07-18] MEDS: ATIVAN 0.5 MG PO (20:52)
[2024-07-18] MEDS: KEPPRA 750 MG PO (20:53)
[2024-07-18] MEDS: ATIVAN 2 MG PO (20:58)
[2024-07-18] MEDS: ATIVAN 2 MG IM (21:57)
--- NOTE | 2024-07-18 22:22 | ED.CRISIS ---
ED Crisis Note
ED Crisis Note
Subjective:
Unable to be assessed
Objective:
Pt agitated and uncooperative
Assessment/Plan:
Prior to transfer to [facility], patient noted to become agitated, uncooperative, and confrontational, refusing to be transferred. With concern for patient and staff safety, decision made to administer ketamine IM prior to transfer.
Pt will be dosed at 3mg/kg IM
== END 2024-07-18 23:47 ==
LOC: EMR 14:58
PROVIDERS: Emergency Medicine; CONSULT PHYSICIAN Hospitalist; EMERGENCY PHYSICIAN Emergency Medicine; FAMILY PHYSICIAN Internal Medicine
DX: F23 Brief psychotic disorder (principal); F20.9 Schizophrenia, unspecified; G40.909 Epilepsy, unspecified, not intractable, without status epilepticus; Z90.49 Acquired absence of other specified parts of digestive tract; Z87.820 Personal history of traumatic brain injury; I10 Essential (primary) hypertension; Z79.899 Other long term (current) drug therapy
CPT/HCPCS: 99285; 96372; 71045; 80053; 80143; 80179; 80306; 80307; 81003; 81015; 82077; 82962; 85025; 87086; 87811; 93005; J2358